=== PATIENT | female | born 1960 | race African-American/Black ===

== ENCOUNTER 2016-10-19 14:03 | Emergency (ER) | payer MEDICARE, OTHER ==
[~2016-10-19] VITALS: Ht 175.3 cm; Wt 75.7 kg
[~2016-10-19 14:03] MED LIST: CAR125T; DIGO0.2566; DRON400T; LOVA40TA72; TRIO1TP
[2016-10-19 14:50] LABS: Basophils # (auto) 0 uL; Basophils % (auto) 0.4 % (0.0-2.0); Eosinophils # (auto) 0.2 uL; Eosinophils % (auto) 2.2 % (0.0-7.0); Hematocrit 40.3 % (36.0-46.0); Hemoglobin 13.3 g/dL (12.2-16.2); Lymphocytes # (auto) 2.9 uL; Mean Corpuscular Hemoglobin 29.5 pg (28.0-32.0); Mean Corpuscular Hgb Conc. 33.1 g/dL (32.0-36.0); Mean Platelet Volume 7.5 fL (7.4-10.4); Monocytes # (auto) 0.5 uL; Monocytes % (auto) 6.4 % (0.0-12.0); Neutrophils # (auto) 4.8 uL; Platelet Count (auto) 228 10^3/uL (140-450); Red Cell Distribution Width 14.3 % (11.6-16.0); White Blood Cell 8.4 10^3/uL (4.4-10.8)
[2016-10-19 15:06] LABS: Albumin 3.8 g/dL (3.4-5.0); BUN/Creatinine Ratio 14.3; Calcium 9.1 mg/dL (8.5-10.1)
[2016-10-19 15:11] LABS: Bilirubin, Total 0.4 mg/dL (0.2-1.0)
[2016-10-19 21:01] LABS: B-Type Natriuretic Peptide 10.71 pg/mL (0-100)
[2016-10-19 21:10] LABS: Temperature: 22.7 C (20.0-25.0)
[2016-10-19 21:34] VITALS: BP 128/59
== END 2016-10-19 21:57 | disposition home or self-care (01) ==
LOC: EDBD 14:03 → ER 14:03
DX: I48.92 Unspecified atrial flutter (principal); I48.91 Unspecified atrial fibrillation; E78.5 Hyperlipidemia, unspecified; I10 Essential (primary) hypertension; F17.210 Nicotine dependence, cigarettes, uncomplicated; Z98.51 Tubal ligation status; Z90.710 Acquired absence of both cervix and uterus; Z95.810 Presence of automatic (implantable) cardiac defibrillator; Z95.0 Presence of cardiac pacemaker
CPT/HCPCS: 36415; 71020; 80053; 82962; 83735; 83880; 84484; 85025; 93005

== ENCOUNTER 2021-12-14 10:14 | Inpatient (IN) | payer BC, MEDICAID ==
[~2021-12-14] VITALS: Ht 175.3 cm; Wt 87.6 kg
[~2021-12-14 10:14] MED LIST changes: +ASPI-543 PO; -DIGO0.2566; -DRON400T; -LOVA40TA72; +MULT-13 OR; +MULT1TAB28 PO; +OMEG306C OR; -TRIO1TP
[2021-12-14 11:01] LABS: Basophils # (auto) 0.2 10 ^3/uL (0-0.2); Basophils % (auto) 2.8 % (0.0-2.0); Eosinophils # (auto) 0.2 10 ^3/uL (0-0.8); Eosinophils % (auto) 2.7 % (0.0-7.0); Hematocrit 40.5 % (36.0-46.0); Hemoglobin 13.3 g/dL (12.2-16.2); Lymphocytes # (auto) 2.5 10 ^3/uL (0.4-5.4); Lymphocytes % (auto) 39.7 % (10.0-50.0); Mean Corpuscular Hemoglobin 29.9 pg (28.0-32.0); Mean Corpuscular Hgb Conc. 32.9 g/dL (32.0-36.0); Mean Corpuscular Volume 90.8 fL (80.0-100.0); Monocytes # (auto) 0.4 10 ^3/uL (0-1.3); Monocytes % (auto) 6.5 % (0.0-12.0); Neutrophils % (auto) 48.3 % (37.0-80.0); Nucleated Red Blood Cells % 0.2 %; Red Blood Cells 4.47 10^6/uL (4.0-5.20); Red Cell Distribution Width 14.1 % (11.8-14.3); White Blood Cell 6.2 10^3/uL (4.4-10.8)
[2021-12-14 11:05] LABS: Urine Bacteria NONE SEEN /hpf (None Seen); Urine Blood TRACE /uL (Negative); Urine WBC 30 /hpf (0 - 5)
[2021-12-14 11:17] LABS: Albumin 3.7 g/dL (3.4-5.0); Calcium 8.9 mg/dL (8.5-10.1); Potassium 3.9 mmol/L (3.5-5.1)
[2021-12-14 11:20] LABS: BUN/Creatinine Ratio 13.2; Bilirubin, Total 0.3 mg/dL (0.2-1.0); Total Protein 8.6 g/dL (6.4-8.2)
[2021-12-14] MEDS ORDERED: NITROGLYCERIN 0.4 MG SL TAB SL ONE (13:15)
[2021-12-14] MEDS ORDERED: SODIUM CHLORIDE 0.9% 500 ML IV ONE (13:15)
[2021-12-14] MEDS ORDERED: ASPirin 325 MG TAB PO ONE (13:15)
[2021-12-14] MEDS ORDERED: ACETAMINOPHEN 325 MG TAB PO PRN (14:45)
[2021-12-14] MEDS ORDERED: ONDANSETRON HCL 4 MG/2 ML VIAL IV PRN (14:45)
[2021-12-14] MEDS ORDERED: NITROGLYCERIN 0.4 MG SL TAB SL PRN (14:45)
[2021-12-14] MEDS ORDERED: MORPHINE SULFATE INJ 2 MG/ml SYRG IV PRN (14:45)
[2021-12-14] MEDS ORDERED: HYDROcodone-ACET 5/325MG TAB PO PRN (14:45)
[2021-12-14] MEDS ORDERED: ALUM & MAG HYDROX-SIMETH LIQ(MAALOX) 30 ML PO ONE (15:45)
[2021-12-14] MEDS: MORPHINE SULFATE INJ 2 MG/ml SYRG IV PRN (17:59)
[2021-12-15 01:02] VITALS: BP 106/62
[2021-12-15 05:00] VITALS: BP 101/55
[2021-12-15] MEDS: MORPHINE SULFATE INJ 2 MG/ml SYRG IV PRN ×2 (05:59→13:50)
[2021-12-15 06:38] LABS: Basophils # (auto) 0 10 ^3/uL (0-0.2); Basophils % (auto) 0.2 % (0.0-2.0); Eosinophils # (auto) 0.1 10 ^3/uL (0-0.8); Eosinophils % (auto) 2.3 % (0.0-7.0); Hemoglobin 12.5 g/dL (12.2-16.2); Lymphocytes # (auto) 2.7 10 ^3/uL (0.4-5.4); Lymphocytes % (auto) 47.9 % (10.0-50.0); Mean Corpuscular Hemoglobin 29.4 pg (28.0-32.0); Mean Corpuscular Hgb Conc. 32.9 g/dL (32.0-36.0); Mean Corpuscular Volume 89.4 fL (80.0-100.0); Monocytes # (auto) 0.4 10 ^3/uL (0-1.3); Monocytes % (auto) 6.4 % (0.0-12.0); Neutrophils # (auto) 2.4 10 ^3/uL (1.6-8.6); Neutrophils % (auto) 43.2 % (37.0-80.0); Nucleated Red Blood Cells % 0.1 %; Red Blood Cells 4.25 10^6/uL (4.0-5.20); Red Cell Distribution Width 13.9 % (11.8-14.3); White Blood Cell 5.6 10^3/uL (4.4-10.8)
[2021-12-15 06:52] LABS: Albumin 3.2 g/dL (3.4-5.0); Calcium 8.6 mg/dL (8.5-10.1); Potassium 4.1 mmol/L (3.5-5.1)
[2021-12-15 06:58] LABS: BUN/Creatinine Ratio 12.5; Bilirubin, Total 0.4 mg/dL (0.2-1.0)
[2021-12-15 09:24] VITALS: BP 103/58
[2021-12-15] MEDS ORDERED: ENOXAPARIN SOD 40 MG/0.4 ML SYRINGE SC SCH (10:00)
[2021-12-15 12:31] VITALS: BP 94/52
[2021-12-15] MEDS ORDERED: cefTRIAXone 1GM/50ML D5W 50 ML IV SCH (16:30)
[2021-12-15] MEDS ORDERED: CEPH-509 PO (16:41)
[2021-12-15 16:49] VITALS: BP 85/57
[2021-12-15 17:29] VITALS: BP 109/61
== END 2021-12-15 18:40 | disposition home or self-care (01) | DRG 313 ==
LOC: ER 10:14 → TELE 14:31 → TELE-WESTW 23:48
PROVIDERS: ADMIT Internal Medicine; ATTEND Internal Medicine
DX: R07.89 Other chest pain (principal); I50.21 Acute systolic (congestive) heart failure; I42.9 Cardiomyopathy, unspecified; N39.0 Urinary tract infection, site not specified; E11.9 Type 2 diabetes mellitus without complications; E78.5 Hyperlipidemia, unspecified; F17.210 Nicotine dependence, cigarettes, uncomplicated; Z20.822 Contact with and (suspected) exposure to COVID-19; I11.0 Hypertensive heart disease with heart failure; I25.10 Atherosclerotic heart disease of native coronary artery without angina pectoris; Z90.711 Acquired absence of uterus with remaining cervical stump; Z95.810 Presence of automatic (implantable) cardiac defibrillator; Z98.51 Tubal ligation status
CPT/HCPCS: 36415; 71045; 80053; 81001; 83880; 84484; 85025; 93005; 93306; 96361; 96374; 96375; G0378; J2405

== ENCOUNTER 2021-12-19 16:17 | Emergency (ER) | payer BC, MEDICAID ==
[~2021-12-19] VITALS: Ht 175.3 cm; Wt 85.7 kg
[~2021-12-19 16:17] MED LIST changes: +CEPH-509 PO
[2021-12-19 18:45] LABS: Basophils # (auto) 0 10 ^3/uL (0-0.2); Basophils % (auto) 0.4 % (0.0-2.0); Eosinophils # (auto) 0.2 10 ^3/uL (0-0.8); Eosinophils % (auto) 2.3 % (0.0-7.0); Hematocrit 37.9 % (36.0-46.0); Lymphocytes # (auto) 3.3 10 ^3/uL (0.4-5.4); Lymphocytes % (auto) 43.1 % (10.0-50.0); Mean Corpuscular Hemoglobin 30.9 pg (28.0-32.0); Mean Corpuscular Hgb Conc. 34.3 g/dL (32.0-36.0); Mean Corpuscular Volume 89.9 fL (80.0-100.0); Monocytes # (auto) 0.5 10 ^3/uL (0-1.3); Monocytes % (auto) 6.2 % (0.0-12.0); Neutrophils # (auto) 3.7 10 ^3/uL (1.6-8.6); Nucleated Red Blood Cells % 0.2 %; Red Blood Cells 4.22 10^6/uL (4.0-5.20); White Blood Cell 7.7 10^3/uL (4.4-10.8)
[2021-12-19 18:58] LABS: Albumin 3.6 g/dL (3.4-5.0); Calcium 8.5 mg/dL (8.5-10.1); Potassium 4.2 mmol/L (3.5-5.1)
[2021-12-19 19:10] LABS: BUN/Creatinine Ratio 14.8; Bilirubin, Total 0.2 mg/dL (0.2-1.0); Total Protein 7.9 g/dL (6.4-8.2)
[2021-12-19 21:40] VITALS: BP 126/67
== END 2021-12-19 21:52 | disposition home or self-care (01) ==
LOC: ER 16:17
DX: R07.89 Other chest pain (principal); I25.10 Atherosclerotic heart disease of native coronary artery without angina pectoris; E78.5 Hyperlipidemia, unspecified; F17.210 Nicotine dependence, cigarettes, uncomplicated; I13.0 Hypertensive heart and chronic kidney disease with heart failure and stage 1 through stage 4 chronic kidney disease, or unspecified chronic kidney disease; E11.22 Type 2 diabetes mellitus with diabetic chronic kidney disease; I50.9 Heart failure, unspecified; N18.30 Chronic kidney disease, stage 3 unspecified; Z90.710 Acquired absence of both cervix and uterus; Z95.0 Presence of cardiac pacemaker; Z79.82 Long term (current) use of aspirin; Z79.899 Other long term (current) drug therapy; Z91.048 Other nonmedicinal substance allergy status
CPT/HCPCS: 36415; 71045; 80053; 84484; 85025; 93005